=== PATIENT | male | born 1975 | race African-American/Black ===

== ENCOUNTER 2018-04-09 00:37 | Emergency (ER) | payer MEDICAID, OTHER ==
[2018-04-09 00:54] VITALS: BP 171/113
--- NOTE | 2018-04-09 02:44 | EDM.PDOC ---
ED HPI GENERAL MEDICAL PROBLEM - General Chief Complaint: Cardiovascular Problem Stated Complaint: BLOOD PRESSURE IS HIGH Time Seen by Provider: 04/09/18 02:27 Source of Information: Reports: Patient History Limitations: Reports: No Limitations - History of Present Illness INITIAL COMMENTS - FREE TEXT/NARRATIVE: The patient states that he has been feeling hot all over, that his head and shoulders feel hot, and that he has been diaphoretic on and off for the past month, but worse over the past 2 days. He states that he has been feeling lightheaded today. No recent fever. No recent nausea, vomiting, constipation, however, the patient did have diarrhea and abdominal pain on , 2017. No recent dyspnea, chest pain, or palpitations. The patient gave me an empty pill bottle for losartan/Hydrocort thiazide 50/ 12.5 #30, prescribed 11/05/2017 per Nguyen Brown. He states that he took the pills for one month, then ran out, and has not followed up since. I think he wants me to refill his blood pressure medication. His initial BP in the ED was 171/113, however, has gone down as low as 136/91 while waiting to be seen. On questioning his social history, the patient acknowledged that he has been a heavy drinker, but that he stopped drinking this past 04/03/2018. - Related Data Allergies Allergy/AdvReac Type Severity Reaction Status Date / Time No Known Allergies Allergy Verified 04/09/18 00:54 Home Meds: Home Meds . [No Known Home Meds] 04/09/18 [History] Past Medical History HEENT History: Reports: Impaired Vision Cardiovascular History: Reports: Hypertension Psychiatric History: Reports: Addiction (alcohol) Social & Family History - Family History Cardiac: Reports: Hypertension - Tobacco Use Smoking Status *Q: Never Smoker Second Hand Smoke Exposure: No - Caffeine Use Caffeine Use: Reports: Coffee, Soda - Alcohol Use Alcohol Use History: Yes Days Per Week of Alcohol Use: 7 Number of Drinks Per Day: 7 Total Drinks Per Week: 49 Date/Time of Last Drink Comment: Last drink 04/03/2018 Alcohol Use Frequency: Daily - Recreational Drug Use Recreational Drug Use: No - Living Situation & Occupation Living situation: Reports: Single, Other (with a friend) 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 ED EXAM, GENERAL - Physical Exam Exam: See Below Exam Limited By: No Limitations General Appearance: Alert, WD/WN, No Apparent Distress, Thin Eye Exam: Bilateral Eye: Normal Inspection Ears: Normal External Exam, Hearing Grossly Normal Nose: Normal Inspection, No Blood Throat/Mouth: Normal Inspection, Normal Lips, Normal Voice, No Airway Compromise Head: Atraumatic, Normocephalic Neck: Normal Inspection, Full Range of Motion Respiratory/Chest: No Respiratory Distress, Lungs Clear, Normal Breath Sounds, No Accessory Muscle Use, Chest Non-Tender Cardiovascular: Normal Peripheral Pulses, Regular Rate, Rhythm, No Edema, No Gallop, No JVD, No Murmur, No Rub Peripheral Pulses: 4+: Radial (L), Radial (R) GI/Abdominal: Normal Bowel Sounds, Soft, Non-Tender, No Organomegaly, No Distention, No Abnormal Bruit, No Mass (Male) Exam: Deferred Rectal (Males) Exam: Deferred Back Exam: Normal Inspection, Full Range of Motion, NT Extremities: Normal Inspection, Normal Range of Motion, No Pedal Edema, Normal Capillary Refill Neurological: Alert, Oriented, Normal Cognition, No Motor/Sensory Deficits Psychiatric: Normal Affect Skin Exam: Warm, Dry, Intact, Normal Color, No Rash EKG INTERPRETATION EKG Date: 04/09/18 Time: 02:57 Rhythm: NSR Rate (Beats/Min): 70 [place]: Normal P-Wave: Present QRS: Normal (Likely LVH) ST-T: Normal QT: Normal Comparison: No Change (08/15/2016) Course - Vital Signs Last Recorded V/S: Last Vital Signs Temp 36.9 C 04/09/18 00:49 Pulse 78 04/09/18 00:49 Resp 16 04/09/18 00:49 BP 171/113 H 04/09/18 00:49 Pulse Ox 98 04/09/18 00:49 Orthostatic Blood Pressure [ 148/99 Standing] Orthostatic Blood Pressure [ 143/103 Sitting] Orthostatic Blood Pressure [ 138/94 Supine] - Orders/Labs/Meds Orders: Active Orders 24 hr Category Date Time Status EKG Documentation Completion [RC] STAT Care 04/09/18 02:41 Active Orthostatic Vital Signs [RC] STAT Care 04/09/18 02:41 Active Labs: Laboratory Tests 04/09/18 04/09/18 Range/Units 02:55 02:55 WBC 4.76 (4.23-9.07) K/mm3 RBC 4.52 L (4.63-6.08) M/mm3 Hgb 14.0 (13.7-17.5) gm/L Hct 41.8 (40.1-51.0) % MCV 92.5 H (79.0-92.2) fl MCH 31.0 (25.7-32.2) pg MCHC 33.5 (32.2-35.5) g/dl RDW Std Deviation 48.4 H (35.1-43.9) fL Plt Count 216 (163-337) K/mm3 MPV 9.5 (9.4-12.3) fl Neutrophils % (Manual) 53 (40-60) % Band Neutrophils % 0 (0-10) % Lymphocytes % (Manual) 35 (20-40) % Atypical Lymphs % 0 % Monocytes % (Manual) 10 (2-10) % Eosinophils % (Manual) 1 (0.8-7.0) % Basophils % (Manual) 1 (0.2-1.2) Platelet Estimate Adequate Plt Morphology Comment Normal Poikilocytosis 1+ slight Anisocytosis 1+ slight Microcytosis 1+ slight Macrocytosis 1+ slight Target Cells 1+ slight RBC Morph Comment Abnormal Sodium 138 (136-145) mEq/L Potassium 4.1 (3.5-5.1) mEq/L Chloride 101 (98-107) mEq/L Carbon Dioxide 30 (21-32) mEq/L Anion Gap 11.1 (5-15) BUN 12 (7-18) mg/dL Creatinine 1.0 (0.7-1.3) mg/dL Est Cr Clr Drug Dosing 84.20 mL/min Estimated GFR (MDRD) > 60 (>60) mL/min BUN/Creatinine Ratio 12.0 L (14-18) Glucose 101 (74-106) mg/dL Calcium 8.5 (8.5-10.1) mg/dL Magnesium 1.2 L (1.8-2.4) mg/dl Total Bilirubin 0.7 (0.2-1.0) mg/dL AST 139 H (15-37) U/L ALT 219 H (16-63) U/L Alkaline Phosphatase 76 (46-116) U/L Total Protein 8.4 H (6.4-8.2) g/dl Albumin 3.9 (3.4-5.0) g/dl Globulin 4.5 gm/dL Albumin/Globulin Ratio 0.9 L (1-2) Meds: Medications Discontinued Medications Generic Name Dose Route Start Last Admin Trade Name Denise PRN Reason Stop Dose Admin Magnesium Sulfate 2 gm/ Premix 50 mls @ 50 mls/hr 04/09/18 03:34 04/09/18 03: 47 IV 04/09/18 04:33 50 mls/hr ONETIME ONE Administration - Re-Assessments/Exams Free Text/Narrative Re-Assessment/Exam: 04/09/18 02:42 While the patient's initial blood pressure was elevated at 171/113, without any treatment, it has gone as low as 136/91, indicating that he may not even have hypertension. With respect to his feeling hot all over and lightheaded, the etiology is unclear, but may be related to his recent heavy drinking. I have ordered orthostatics, some blood work and an ECG. 04/09/18 03:05 The patient is not orthostatic. 04/09/18 03:34 The patient's CMP finds mildly elevated LFTs, and his magnesium level depressed at 1.2. All these are likely related to his recent heavy drinking. The remainder of his CBC and CMP are unremarkable. I have ordered a 2 g Mg-rider. 04/09/18 05:04 While the patient was receiving his Mg-rider, his blood pressure was measured as low as 126/89, with the most recent BP of 128/88. Because of the diastolic BP >80, the patient appears to have Stage I hypertension. I will refer him to Dr. Simpson for follow-up. Departure - Departure Time of Disposition: 05:07 Disposition: Home, Self-Care 01 Condition: Good Clinical Impression: Sensation of feeling hot, Hypertension, Alcohol abuse - Discharge Information Referrals: PCP,None [Primary Care Provider] - Cynthia Simpson MD [Physician] - Forms: ED Department Discharge Additional Instructions: You were seen in the emergency room for feeling hot all over sweaty, dizzy, and having high blood pressure. Workup in the ER included blood work, positional blood pressure checks, and an ECG. You magnesium was found to be low at 1.2. You received IV magnesium in the ER. Your liver enzymes were found to be mildly elevated. The remainder of your workup was unremarkable. Your feeling hot, low magnesium level and mildly elevated liver enzymes are MOST LIKELY due to your excessive drinking. Going forward, we recommend that you stop drinking altogether. If you are having difficulty doing that, we recommend that you follow-up at [facility]: [address] Johanne Romo [phone] Your blood pressure was high when you first got to the ER, but fell as low as 126/89 while in the ER, without treatment. This indicates that you have Stage I hypertension. Please follow-up with Dr. Cynthia Simpson for treatment. If any other problems, please do not hesitate to return to the ER. - My Orders Last 24 Hours: My Active Orders 04/09/18 02:41 EKG Documentation Completion [RC] STAT Orthostatic Vital Signs [RC] STAT - Assessment/Plan Last 24 Hours: My Active Orders 04/09/18 02:41 EKG Documentation Completion [RC] STAT Orthostatic Vital Signs [RC] STAT
[2018-04-09] MEDS ORDERED: Magnesium Sulfate/Water 2 GM in Premix Bag 1 BAG IV ONE (03:34)
== END 2018-04-09 05:27 | disposition home or self-care (01) ==
LOC: JD.ED 00:37
DX: F10.129 Alcohol abuse with intoxication, unspecified (principal); I10 Essential (primary) hypertension; R20.8 Other disturbances of skin sensation
CPT/HCPCS: 36415; 80053; 83735; 85007; 85027; 93005; 93010; 96365; 99284-25; J3475

== ENCOUNTER 2020-04-03 05:41 | Emergency (ER) | payer SELFPAY ==
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
[2020-04-03] MEDS ORDERED: Diphtheria,Pertussis(Acell),Tetanus Vaccine 0.5 ML Syringe IM ONE (06:10)
--- NOTE | 2020-04-03 07:03 | CT ---
Head CT Technique: Multiple axial sections through the brain were obtained. Intravenous contrast was not utilized. Comparison: Prior head CT study of 09/29/16. Findings: Ventricles along with basal cisterns and sulci over the convexities are within normal limits for the patient's age. Minimal basal ganglia calcification is seen. No abnormal parenchymal densities are seen. No evidence of intracranial hemorrhage. No midline shift or mass-effect is seen. Bone window settings were reviewed. Visualized paranasal sinuses and mastoid sinuses show nothing acute. No acute calvarial finding is seen. Impression: 1. Nothing acute is appreciated on noncontrast head CT exam. Diagnostic code #1 This report was dictated in MDT
--- NOTE | 2020-04-03 07:07 | CT ---
CT facial bones Technique: Multiple axial sections through the facial bones were obtained. Reconstructed coronal and sagittal images were obtained. Comparison: No prior facial bone study is available. Findings: Plate and screws are identified along the inferior left orbital wall. Mild mucosal thickening is seen within the right maxillary sinus. Small bony osteoma is noted within the right frontal sinus. Old fracture is also noted within the lateral left orbital rim. Orthopedic fixation is seen across this fracture line. No acute fracture is appreciated within the facial bones. Impression: 1. Old facial bone trauma around the left orbit. Orthopedic hardware is in place. 2. Sinus disease which is believed to be chronic. 3. No acute facial bone fracture is appreciated. Diagnostic code #2 This report was dictated in MDT
[2020-04-03 07:42] VITALS: BP 137/94; PULSE 91
== END 2020-04-03 07:37 | disposition home or self-care (01) ==
LOC: JD.ED 05:41
DX: S02.2XXA Fracture of nasal bones, initial encounter for closed fracture (principal); S09.90XA Unspecified injury of head, initial encounter; S80.11XA Contusion of right lower leg, initial encounter; I10 Essential (primary) hypertension; Z23 Encounter for immunization; V19.9XXA Pedal cyclist (driver) (passenger) injured in unspecified traffic accident, initial encounter
CPT/HCPCS: 70450; 70450-26; 70486; 70486-26; 90471; 90715; 99283; 99283-25

== ENCOUNTER 2021-08-21 20:50 | Emergency (ER) | payer SELFPAY ==
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
[2021-08-21] MEDS ORDERED: Sodium Chloride 0.9% 1,000 ML IV SCH (21:30)
[2021-08-21] MEDS ORDERED: Ondansetron 4 MG/2 ML SDV IVPUSH ONE (21:38)
[2021-08-21 22:00] LABS: ACETAMINOPHEN 0 ug/mL (10-30)
[2021-08-22 07:33] VITALS: BP 135/79; PULSE 99
== END 2021-08-22 07:25 | disposition home or self-care (01) ==
LOC: JD.ED 20:50
DX: T78.1XXA Other adverse food reactions, not elsewhere classified, initial encounter (principal); F10.229 Alcohol dependence with intoxication, unspecified; I10 Essential (primary) hypertension; Y90.5 Blood alcohol level of 100-119 mg/100 ml
CPT/HCPCS: 36415; 80053; 80143; 80179; 80306; 80307; 83735; 85007; 85027; 93005; 96374; 99284; J2405; J7030